=== PATIENT | male | born 1995 | race Caucasian/White ===

== ENCOUNTER 2018-02-01 02:41 | Emergency (ER) | payer OTHER, BC ==
[~2018-02-01] VITALS: Ht 182.9 cm; Wt 78.6 kg
[2018-02-01 02:43] VITALS: BP 142/90; TEMP 98.1
[2018-02-01 03:20] LABS: BASO % 0.3 % (0.0-2.0); EOS # 0.1 (0.0-0.7); EOS % 0.8 % (0-4.0); GRAN # 6.1 (1.4-6.5); GRAN % 70.5 % (42.2-75.2); HEMOGLOBIN 15.7 g/dl (13.5-18.0); LYMPH % 23.1 % (20.0-51.0); MEAN CELL VOLUME 89 fl (80.0-100.0); MEAN CORPUSCULAR HEMOGLOBIN 31 pg (27.0-31.0); MEAN CORPUSCULAR HGB CONC 35 g/dl (33.0-37.0); MEAN PLATELET VOLUME 9.3 fl (7.4-10.4); MONO # 0.4 (0.1-0.6); MONO % 5.1 % (1.7-9.3); PLATELET COUNT 223 K/mm3 (130-400); RED BLOOD COUNT 5.08 M/mm3 (4.20-5.60)
[2018-02-01 03:31] LABS: ALBUMIN 4.9 gm/dL (3.5-5.0); BILIRUBIN,TOTAL 0.2 mg/dL (0.0-1.0); CALCIUM 9.3 mg/dL (8.4-10.2); CREATININE, serum 0.87 mg/dL (0.66-1.25); POTASSIUM 4.5 mmol/L (3.4-5.0); TOTAL PROTEIN 7.9 gm/dL (6.4-8.2)
[2018-02-01] MEDS ORDERED: ZOFRAN ODT4 MG PO (03:37)
[2018-02-01 03:51] VITALS: PULSE 91
== END 2018-02-01 04:01 | disposition home or self-care (01) ==
LOC: COL.ER 02:41
PROVIDERS: Physician Assistant
DX: F10.129 Alcohol abuse with intoxication, unspecified (principal); Y90.6 Blood alcohol level of 120-199 mg/100 ml